=== PATIENT | female | born 1980 | race Caucasian/White ===

== ENCOUNTER 2018-02-07 17:29 | Emergency (ER) | payer SELFPAY ==
[~2018-02-07] VITALS: Ht 165.1 cm; Wt 112.0 kg
[2018-02-07] MEDS ORDERED: AMLO2.5T45 PO (17:48)
[2018-02-07] MEDS ORDERED: BENA20TA3 PO (17:48)
[2018-02-07 18:34] LABS: BASOPHILS % 0.3 % (0.0-2.0); EOSINOPHILS % 0.1 % (0.0-5.0); HEMATOCRIT. 44.2 % (36.0-48.0); HEMOGLOBIN. 15.4 g/dL (12.0-16.0); LYMPHOCYTES % 7.2 % (20.0-50.0); MEAN CORPUSCULAR HEMOGLOBIN 29.7 pg (28.0-32.0); MEAN PLATELET VOLUME 8.5 fl (7.4-10.4); MONOCYTES % 3.6 % (2.0-8.0); NEUTROPHILS % 88.8 % (40.0-76.0); PLATELET 242 x1000/uL (130-400); RED BLOOD CELL COUNT 5.19 mill/uL (4.2-5.4); RED CELL DISTRIBUTION WIDTH 13.6 % (11.6-14.6)
[2018-02-07 18:42] LABS: PROTHROMBIN TIME 10.4 sec (9.4-11.6)
[2018-02-07 18:44] LABS: CHLORIDE 101 mEq/L (98-107)
[2018-02-07 18:53] LABS: HCG SCREEN NEGATIVE
[2018-02-07] MEDS ORDERED: SODIUM CHLORIDE 0.9% 1,000 ML IV ONE (19:30)
[2018-02-07] MEDS ORDERED: MORPHINE SULFATE 4 MG/ML CPJ (NOT FOR IM USE) IV STA (19:30)
[2018-02-07] MEDS ORDERED: ONDANSETRON HCL 4MG/2ML VIAL IV STA (19:30)
[2018-02-07] MEDS ORDERED: POTASSIUM CHLORIDE 20MEQ TABLET SR PO ONE (19:45)
[2018-02-07 20:50] LABS: CLARITY URINE CLEAR (CLEAR); COLOR URINE YELLOW (YELLOW); KETONES URINE 2+ (NEGATIVE); LEUKOCYTE ESTERASE URINE NEGATIVE (NEGATIVE); NITRITE URINE NEGATIVE (NEGATIVE); OCCULT BLOOD URINE 3+ (NEGATIVE); PH URINE 7.5 (4.5-8.0); PROTEIN URINE NEGATIVE (NEGATIVE); SPECIFIC GRAVITY URINE 1.016 (1.005-1.030); UROBILINOGEN URINE 0.2 E.U./dL (0.2-1.0)
[2018-02-07] MEDS ORDERED: KETOROLAC 30MG/ML VIAL IV ONE (22:15)
[2018-02-07] MEDS ORDERED: AMLODIPINE 10MG TABLET PO ONE (22:45)
[2018-02-07] MEDS ORDERED: BENAZEPRIL 10MG TABLET PO ONE (22:45)
[2018-02-07] MEDS ORDERED: METOPROLOL TARTRATE 25MG TABLET PO ONE (22:45)
[2018-02-07 23:55] VITALS: BP 160/83
== END 2018-02-08 00:12 | disposition home or self-care (01) ==
LOC: ER 18:49
DX: N13.2 Hydronephrosis with renal and ureteral calculous obstruction (principal); E87.6 Hypokalemia; I10 Essential (primary) hypertension; I48.0 Paroxysmal atrial fibrillation; E66.9 Obesity, unspecified; Z79.01 Long term (current) use of anticoagulants; Z68.41 Body mass index [BMI] 40.0-44.9, adult
CPT/HCPCS: 36415; 74176; 80053; 81003; 83690; 84703; 85025; 85610; 96361; 96374; 96375; 99285; J1885; J2270; J2405; J7030; Z7610